=== PATIENT | female | born 1960 | race Caucasian/White ===

== ENCOUNTER 2019-03-02 07:44 | Day surgery (SDC) | payer MEDICAID ==
[~2019-03-02] VITALS: Ht 162.6 cm; Wt 127.0 kg
[2019-03-02] MEDS ORDERED: DEXAMETHASONE SOD PHOSPHATE 4 MG/ML VIAL IVP ONE ×2 (10:00→11:20)
[2019-03-02] MEDS ORDERED: MIDAZOLAM HCL 5 MG/5 ML VIAL IVP ONE (10:00)
[2019-03-02] MEDS ORDERED: KETOROLAC TROMETHAMINE 30 MG VIAL IVP ONE ×2 (10:00→11:20)
[2019-03-02] MEDS ORDERED: SUCCINYLCHOLINE CHLORIDE 20 MG/ML(QUELICIN) IVP ONE (10:00)
[2019-03-02] MEDS ORDERED: ONDANSETRON HCL 4 MG/2 ML VIAL IVP ONE ×2 (10:00→11:20)
[2019-03-02] MEDS ORDERED: ROCURONIUM BROMIDE 10 MG/ML (ZEMURON) IV ONE ×2 (10:00→11:20)
[2019-03-02] MEDS ORDERED: LR 1,000 ML IV.SOLN IV ONE (10:00)
[2019-03-02] MEDS ORDERED: SEVOFLURANE 15 MIN GAS INH ONE ×2 (10:00→11:20)
[2019-03-02] MEDS ORDERED: fentaNYL CITRATE/PF 100 MCG/2 ML AMP IVP ONE ×2 (10:00→11:20)
[2019-03-02] MEDS ORDERED: PROPOFOL 200MG/ 20ML VIAL (DIPRIVAN) IV ONE ×2 (10:00→11:20)
[2019-03-02] MEDS ORDERED: LR 1,000 ML IV SCH (11:05)
[2019-03-02] MEDS ORDERED: HYDROmorphone 1 MG INJ. 1 MG/ML AMPUL IVP PRN (11:15)
[2019-03-02] MEDS ORDERED: HYDROmorphone 2 MG/ML VIAL IVP PRN ×2 (11:15)
[2019-03-02] MEDS ORDERED: MEPERIDINE HCL/PF 25 MG/ML DISP.SYRIN IVP PRN (11:15)
[2019-03-02] MEDS ORDERED: NS 1000 ML IV.SOLN IV ONE (11:20)
[2019-03-02 14:23] VITALS: BP_SYST 114
== END 2019-03-02 13:30 | disposition home or self-care (01) ==
LOC: SDS 07:44 → SMU 07:44 → SDS 13:30
PROVIDERS: ATTEND Obstetrics & Gynecology
DX: N95.0 Postmenopausal bleeding (principal); I10 Essential (primary) hypertension; E66.01 Morbid (severe) obesity due to excess calories; Z98.84 Bariatric surgery status; Z98.890 Other specified postprocedural states; Z82.49 Family history of ischemic heart disease and other diseases of the circulatory system; N84.0 Polyp of corpus uteri
CPT/HCPCS: 88305; C1819; J0330; J1100; J1885; J2250; J2405; J2704; J3010; J7030; J7120